=== PATIENT | male | born 2000 | race Two or more races ===

== ENCOUNTER → 2024-09-26 | Emergency (ER) | payer BC, MEDICAID ==
[~2024-09-26] VITALS: Ht 177.8 cm; Wt 79.4 kg
[~2024-09-26] MED LIST: CEPH-570 PO; MUPI22OI7 TP
[2024-09-26 17:00] VITALS: BP 125/83; TEMP 98.5; O2SAT 98
[2024-09-26] MEDS: LIDOCAINE 2% 20 ML MDV IJ ONE (17:14)
[2024-09-26] MEDS: BACI/NEOM/POLY B OINT PKT 1 UDPKT PACKET TP ONE (17:14)
[2024-09-26] MEDS: TDAP [DIPH/PERTUSSIS/TET] 0.5 ML VIAL IM ONE (17:14)
== END | disposition home or self-care (01) ==
LOC: ER 16:26
DX: S61.012A Laceration without foreign body of left thumb without damage to nail, initial encounter (principal); E78.00 Pure hypercholesterolemia, unspecified; Z79.899 Other long term (current) drug therapy; W26.0XXA Contact with knife, initial encounter; Y93.89 Activity, other specified; Y92.89 Other specified places as the place of occurrence of the external cause; Y99.8 Other external cause status